=== PATIENT | female | born 1995 | race Caucasian/White ===

== ENCOUNTER 2023-08-15 01:58 | Inpatient (IN) | payer OTHER ==
[~2023-08-15] VITALS: Ht 167.6 cm; Wt 97.5 kg
[~2023-08-15 01:58] MED LIST: AMOXICILLIN500 MG PO; CEPHALEXIN500 MG PO; IBUPROFEN600 MG PO; PSEUDOEPHEDRINE30 MG PO; ZOFRAN ODT4 MG PO
[2023-08-15 03:15] LABS: HEMATOCRIT 30.5 % (35.0-50.0); HEMOGLOBIN 10.5 g/dL (12.0-18.0); MCH 30.4 (27-36); MCHC 34.4 g/dl (30-36); MCV 88.3 fl (81-99); RBC 3.46 M/ul (4.3-5.7); RDW 13.3 (10.5-15.0)
[2023-08-15 03:47] LABS: AMPHETAMINES, URINE NEGATIVE (NEGATIVE); BARBITURATES, URINE NEGATIVE (NEGATIVE); BENZODIAZEPINE, URINE NEGATIVE (NEGATIVE); BUPRENORPHINE, URINE NEGATIVE (NEGATIVE); CANNABINOID, URINE NEGATIVE (NEGATIVE); COCAINE, URINE NEGATIVE (NEGATIVE); ECSTASY, URINE NEGATIVE (NEGATIVE); FENTANYL, URINE NEGATIVE (NEGATIVE); METHADONE, URINE NEGATIVE (NEGATIVE); OPIATES, URINE NEGATIVE (NEGATIVE); OXYCODONE, URINE NEGATIVE (NEGATIVE); PHENCYCLIDINE, URINE NEGATIVE (NEGATIVE)
[2023-08-15 04:19] LABS: ABO O; ANTIBODY SCREEN POSITIVE; RH NEGATIVE
--- NOTE | 2023-08-15 09:12 | PR ---
[facility] [address] [place], [place] [address] Signed Progress Notes IP Datetime Report Generated by CPMonse: 08/15/2023 09:12 PROGRESS NOTES: [id number] Impression: Normal Progression of Labor; Reassuring Heart Rate Procedures: Artificial ROM; Sterile Vag Exam Plan: Continue Present Management; Anticipate Vaginal Delivery Informed Consent Obtain: Vaginal Delivery VITAL SIGNS: [id number] Vital Signs: Reviewed; Within Normal Limits EXAM: [id number] Dilatation: 7.0 Effacement: 80 Station: -2 Contractions: q 2-3 min MEMBRANES: [id number] Comments: Pt seen and examined. Doing well. Comfortable w/ epidural. Discuss progress of labor and anticipated course of labor and delivery. Reviewed reassuring FHT, adequate pelvis, and anticipated weight. All questions answered. Pt desires AROM which was easily performed for moderate amount of clear fluid after ensuring vertex well applied. Anticipate FETUS A: [id number] FHR Baseline: 125 Variability: Moderate 6-25bpm Accelerations: 15X15 Decelerations: None FHR Category: Category I Presentation: Vertex FETUS B: [id number] Signing Physician: Sesar De La Vega DO Copies: ~ *Electronically Signed* 08/15/23911 SESAR DE LA VEGA (CEDRIC) DO PATIENT NAME: JEANNETTE BARRON PROGRESS NOTE DATE OF : [birth year] PHYSICIAN: SESAR DE LA VEGA) DO RPT #: [id number] REPORT IS CONFIDENTIAL AND NOT TO BE RELEASED WITHOUT AUTHORIZATION
--- NOTE | 2023-08-15 11:39 | PR ---
[facility] [address] [facility] [place], [place] [address] Signed Progress Notes IP Datetime Report Generated by CPN: 08/15/2023 11:39 PROGRESS NOTES: [id number] Impression: Normal Progression of Labor; Reassuring Heart Rate Procedures: Sterile Vag Exam Plan: Continue Present Management Informed Consent Obtain: Vaginal Delivery VITAL SIGNS: [id number] Vital Signs: Reviewed; Within Normal Limits EXAM: [id number] Dilatation: 8.0 Effacement: 90 Station: -2 Contractions: q 2 min MEMBRANES: [id number] Comments: Pt seen and examined. Doing well. Comfortable w/ epidural. Discussed anticiapted course of labor/delivery. All questions answered. FETUS A: [id number] FHR Baseline: 125 Variability: Moderate 6-25bpm Accelerations: 15X15 Decelerations: None FHR Category: Category I Presentation: Vertex FETUS B: [id number] Signing Physician: Sesar De La Vega DO Copies: ~ *Electronically Signed* 08/15/23 1139 SESAR DE LA VEGA (CEDRIC) DO PATIENT NAME: JEANNETTE BARRON PROGRESS NOTE DATE OF : [birth year] PHYSICIAN: SESAR DE LA VEGA (CEDRIC) DO RPT #: [id number] REPORT IS CONFIDENTIAL AND NOT TO BE RELEASED WITHOUT AUTHORIZATION
[2023-08-15 13:43] VITALS: BP 121/75
--- NOTE | 2023-08-15 13:58 | PR ---
[facility] [address] [facility] [place], [place] [address] Signed Progress Notes IP Datetime Report Generated by CPMonse: 08/15/2023 13:58 PROGRESS NOTES: [id number] Impression: Normal Progression of Labor; Reassuring Heart Rate Procedures: Sterile Vag Exam Plan: Continue Present Management; Anticipate Vaginal Delivery Informed Consent Obtain: Vaginal Delivery VITAL SIGNS: [id number] Vital Signs: Reviewed; Within Normal Limits EXAM: [id number] Dilatation: 10.0 Effacement: 90 Station: -2 Contractions: q 2 min MEMBRANES: [id number] Comments: Pt seen and examined. Doing very well. FHT reassuing after episode of hypotension that resolved w/ ephedrine. Now complete and +1 station. Will allow to labor down and anticipate soon. FETUS A: [id number] FHR Baseline: 125 Variability: Moderate 6-25bpm Accelerations: 15X15 Decelerations: None FHR Category: Category I Presentation: Vertex FETUS B: [id number] Signing Physician: Sesar De La Vega DO Copies: ~ *Electronically Signed* 08/15/23 1872 SESAR DE LA VEGA (CEDRIC) DO PATIENT NAME: JEANNETTE BARRON PROGRESS NOTE DATE OF : [birth year] PHYSICIAN: SESAR DE LA VEGA (CEDRIC) DO RPT #: [id number] REPORT IS CONFIDENTIAL AND NOT TO BE RELEASED WITHOUT AUTHORIZATION
[2023-08-16 05:17] LABS: HEMATOCRIT 25.8 % (35.0-50.0); HEMOGLOBIN 8.8 g/dL (12.0-18.0); MCH 30.3 (27-36); MCHC 34.2 g/dl (30-36); MCV 88.5 fl (81-99); RBC 2.92 M/ul (4.3-5.7); RDW 13.6 (10.5-15.0)
[2023-08-16 06:18] LABS: ABO O; ANTIBODY SCREEN POSITIVE; RH NEGATIVE
[2023-08-16 06:20] LABS: FETAL HEMOGLOBIN SCREEN NEGATIVE; RHIG VIAL 1 RG22KO1-U
[2023-08-16 06:21] LABS: RHIG DOSE 1; RHIG STATUS CANDIDATE
--- NOTE | 2023-08-16 07:24 | PR ---
[facility] [address] [facility] [place], [place] [address] Signed PP Progress Notes Datetime Report Generated by CPN: 08/16/2023 07:24 SUBJECTIVE: [id number] Pain: Within Normal Limits Nausea/Vomiting: Denies Bowel Movement: No Vital Signs: [id number] Vital Signs: Reviewed; Within Normal Limits Cardiovascular: Normal Respiratory: Normal Abdomen/Uterus: Normal Lochia: Normal Vulva/Perineum: Not Done Breasts: Not Done CVA Tenderness: Normal Extremities: Normal Incision: Not Applicable Progress: Normal Exam Comments: Fundus firm U-2 nontender IMPRESSION/PLAN/PROCEDURES: [id number] Impression: Normal Progression Plan: Continue Present Management Progress Notes: Pt seen and examined. Doing well. Ambulating, voiding, and tolerating full diet. Pain and lochia minimal. well. No fevers/chills or other concerns. Anticipate d/c home tomorrow. Signing Physician: Sesar De La Vega DO Copies: ~ *Electronically Signed* 08/16/23 0724 SESAR DE LA VEGA (CEDRIC) DO PATIENT NAME: JEANNETTE BARRON LAILA PROGRESS NOTE DATE OF : [birth year] PHYSICIAN: SESAR DE LA VEGA) DO RPT #: [id number] REPORT IS CONFIDENTIAL AND NOT TO BE RELEASED WITHOUT AUTHORIZATION
--- NOTE | 2023-08-17 07:22 | PR ---
[facility] [address] [place], [place] [address] Signed PP Progress Notes Datetime Report Generated by DELMY: 08/17/2023 07:22 SUBJECTIVE: [id number] Pain: Within Normal Limits Nausea/Vomiting: Denies Flatus: Yes Bowel Movement: No Vital Signs: [id number] Vital Signs: Reviewed; Within Normal Limits Cardiovascular: Normal Respiratory: Normal Abdomen/Uterus: Normal Lochia: Normal Vulva/Perineum: Not Done Breasts: Not Done CVA Tenderness: Normal Extremities: Normal Incision: Not Applicable Progress: Normal Exam Comments: Fundus firm U-2 nontender IMPRESSION/PLAN/PROCEDURES: [id number] Impression: Normal Progression Other Impression: Acute blood loss anemia; asymptomatic Plan: Discharge Procedures: None Progress Notes: Pt seen and examined. Doing well. Ambulating, voiding, and tolerating full diet. Pain and lochia minimal. well. No fevers/chills. No lightheadedness / dizziness. No concerns and desires d/c home today. Reviewed d/c instructions and medications in detail. Reviewed pp contraception options; undecided. All questions answered. F/U 2 wks. Signing Physician: Sesar De La Vega DO Copies: ~ *Electronically Signed* 08/17/23 0722 SESAR DE LA VEGA (CEDRIC) DO PATIENT NAME: JEANNETTE BARRON PROGRESS NOTE DATE OF : 96 PHYSICIAN: SESAR DE LA VEGA (JD) DO RPT #: [id number] REPORT IS CONFIDENTIAL AND NOT TO BE RELEASED WITHOUT AUTHORIZATION
[2023-08-20 22:18] LABS: ANTIBODY IDENTIFICATION ANTI-D
[2023-08-20 22:18] LABS: ANTIBODY IDENTIFICATION ANTI-D
== END 2023-08-17 14:15 | disposition home or self-care (01) | DRG 806 ==
LOC: FBCO 01:58 → FBC 02:31
PROVIDERS: Obstetrics & Gynecology; ADMIT Obstetrics & Gynecology; ATTEND Obstetrics & Gynecology
PROC: 10E0XZZ Delivery of Products of Conception, External Approach (ICD-10-PCS; principal; 2023-08-15)
PROC: 0KQM0ZZ Repair Perineum Muscle, Open Approach (ICD-10-PCS; 2023-08-15)
PROC: 3E0R3BZ Introduction of Anesthetic Agent into Spinal Canal, Percutaneous Approach (ICD-10-PCS; 2023-08-15)
PROC: 00HU33Z Insertion of Infusion Device into Spinal Canal, Percutaneous Approach (ICD-10-PCS; 2023-08-15)
PROC: 10907ZC Drainage of Amniotic Fluid, Therapeutic from Products of Conception, Via Natural or Artificial Opening (ICD-10-PCS; 2023-08-15)
DX: O76 Abnormality in fetal heart rate and rhythm complicating labor and delivery (principal); D62 Acute posthemorrhagic anemia; Z37.0 Single live birth; O26.53 Maternal hypotension syndrome, third trimester; Z3A.38 38 weeks gestation of pregnancy; O90.81 Anemia of the puerperium; O70.1 Second degree perineal laceration during delivery
CPT/HCPCS: 36415; 80307; 83030; 85027; 86850; 86870; 86900; 86901; A9270; J2405; J2790; J2795; J3010; J7121

== ENCOUNTER 2025-05-11 12:59 | Day surgery (SDC) | payer OTHER ==
[~2025-05-11] VITALS: Ht 182.9 cm; Wt 90.9 kg
[~2025-05-11 12:59] MED LIST changes: +IBLOOD GLUCOSE TEST STRIP 1 EA TEST VI PRN; +LACTATED RINGER'S 1,000 ML IV SCH; +LIDOCAINE HCL 1% 5 ML SDV INJ ONE; +LIDOCAINE HCL 4% 50 ML BTL TOP SCH; +MIDAZOLAM HCL 5 MG/5 ML VIAL IV PRN; +fentaNYL citrate 100 MCG/2 ML VIAL IV PRN
[2025-05-11 13:22] VITALS: BP 118/67
[2025-05-11] MEDS ORDERED: MIDAZOLAM HCL 5 MG/5 ML VIAL ONE (14:07)
[2025-05-11] MEDS ORDERED: fentaNYL citrate 100 MCG/2 ML VIAL ONE (14:08)
[2025-05-11] MEDS ORDERED: MIDAZOLAM HCL 2 MG/2 ML VIAL ONE ×2 (14:26→14:33)
--- NOTE | 2025-05-11 14:58 | NUR ---
05/11/25 1450 Greta Alberto 1452: PT ARRIVES TO PACU AWAKE, SLIGHTLY DROWSY. REPORT RECEVIED FROM DIRECTOR OF SOCIAL SERVICES'S.
[2025-05-11 15:28] VITALS: BP 103/58
--- NOTE | 2025-05-12 07:59 | OR ---
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 2. Family history of Galdamez syndrome; sister, mother, and maternal grandmother. POSTOPERATIVE DIAGNOSES: 1. Normal-appearing upper endoscopy. 2. Small polyps of colon x2 (rectosigmoid and rectum). PROCEDURES: 1. Esophagogastroduodenoscopy with biopsy. 2. Total colonoscopy to cecum with cold morcellation polypectomy x2. ANESTHESIA: Intravenous sedation with fentanyl 150 mcg total and Versed 14 mg total. INDICATION: This 29-year-old white woman is a patient of CHILANGO Cortez. Her sister who has underlying severe Crohn disease was identified as having Galdamez syndrome. Testing was performed in the patient's mother in addition to her sister as well as the maternal grandmother, all of which were positive for Galdamez syndrome. The patient has no symptoms of bleeding, diarrhea, or constipation and no upper gastrointestinal symptoms. Based on her serologic findings, Galdamez syndrome, upper endoscopy and colonoscopy as initial evaluation has been recommended despite her young age. The risks of upper endoscopy and colonoscopy were reviewed with her, which include, but are not limited to bleeding, infection, and perforation. She understands and wishes to proceed. FINDINGS: Upper endoscopy was essentially normal. CLOtest biopsies were equivocal at 30 minutes. As regards to colon, it was well prepped. There were two small polyps, both of them likely adenomas, one at the rectosigmoid, the other in the rectum, both were excised. There were no other findings of note. DESCRIPTION OF PROCEDURE: The patient was brought to the endoscopy suite and placed in lateral decubitus position after undergoing topical lidocaine hypopharyngeal anesthesia. She was given intravenous Electronically Signed By: ALIZA BETANCUR MD 05/12/25 0759 PATIENT NAME: JEANNETTE BARRON OPERATIVE REPORT DATE OF : [birth year] REPORT #: [id number] PHYSICIAN: ALIZA BETANCUR MD PCP: SMILEY YOUNGBLOOD PA-C REPORT IS CONFIDENTIAL AND NOT TO BE RELEASED WITHOUT AUTHORIZATION [facility] [address] [place], [place] [address] Signed sedation with full cardiopulmonary monitoring. A bite block was placed. An Olympus video upper endoscope passed in the hypopharynx. The vocal cords were normal. Examination of the esophagus, stomach, and duodenum was thoroughly undertaken showing no sign of obvious abnormality. Biopsies were taken of the duodenum to assess for celiac disease and of the antrum and proximal stomach for both ONELIA and pathologic testing. Retroflexed view did confirm a normal flap valve. Biopsies were then taken of the distal esophagus. Further withdrawal showed no findings of note. Plans were then made for colonoscopy. Additional sedation was given. Digital rectal examination performed, which was normal. An Olympus video colonoscope was passed in the rectum and manipulated throughout the colon, ultimately intubating the cecum itself. The ileocecal valve and appendiceal orifice were normal. The scope was withdrawn from that point. Examination showed no sign of abnormality into the rectosigmoid, where a small adenomatous-appearing polyp was noted. It was about 3 mm at most in size. It was excised with cold morcellation technique. Another polyp slightly smaller was noted in the rectum, also excised. Retroflexed view showed no other abnormality. The scope was removed and the patient was taken to the recovery room in good condition. CONCLUDING DIAGNOSES: 1. Galdamez syndrome, two small polyps, rectosigmoid and rectum, both excised. 2. No evidence of upper gastrointestinal polyp or abnormality. PLAN: Would recommend repeat upper endoscopy in 5 years based on clinical guidelines for patients proven with Galdamez syndrome and in 1-2 years (prefer 1) of the colon. I have explained this to the patient and she understands. The patient will return to the ongoing care of CHILANGO Cortez. MD GONSALO Camilo/WILIANL /[id number] cc: CHILANGO Cortez Electronically Signed By: ALIZA BETANCUR MD 05/12/25 0759 PATIENT NAME: JEANNETTE BARRON OPERATIVE REPORT DATE OF : [birth year] REPORT #: [id number] PHYSICIAN: ALIZA BETANCUR MD PCP: SMILEY YOUNGBLOOD PA-C REPORT IS CONFIDENTIAL AND NOT TO BE RELEASED WITHOUT AUTHORIZATION [facility] [address] [facility] [place] [address] Signed Copies: ~ Electronically Signed By: ALIZA BETANCUR MD 05/12/25 0759 PATIENT NAME: JEANNETTE BARRON OPERATIVE REPORT DATE OF : [birth year] REPORT #: [id number] PHYSICIAN: ALIZA BETANCUR MD PCP: SMILEY YOUNGBLOOD PA-C REPORT IS CONFIDENTIAL AND NOT TO BE RELEASED WITHOUT AUTHORIZATION
--- NOTE | 2025-05-14 17:19 | PATH ---
[facility] [address] [place], [place] [address] Signed SPECIMEN(S): A DUODENAL BIOPSY SPECIMEN(S): B ANTRUM BIOPSY SPECIMEN(S): C LOWER ESOPHAGEAL BIOPSY SPECIMEN(S): D RECTOSIGMOID COLON POLYP SPECIMEN(S): E RECTAL POLYP SPECIMEN SOURCE: A. DUODENAL BIOPSY B. ANTRUM BIOPSY C. LOWER ESOPHAGEAL BIOPSY D. RECTOSIGMOID COLON POLYP E. RECTAL POLYP CLINICAL HISTORY: History of Galdamez syndrome, polyps FINAL PATHOLOGIC DIAGNOSIS: A. Duodenal biopsy: - Benign duodenal mucosa, negative for specific diagnostic abnormality. B. Antrum biopsy: - Diffuse superficial chronic gastritis. - A Helicobacter pylori immunostain is positive for organisms. C. Lower esophageal biopsy: - Esophageal and gastric mucosa with reactive features and mild chronic inflammation. - Negative for specialized intestinal metaplasia or dysplasia. D. Rectosigmoid colon polyp: - Hyperplastic polyp (one fragment). E. Rectal polyp: - Polypoid colonic mucosa, negative for dysplasia or pathologic inflammation. COMMENT: A Helicobacter pylori immunostain is performed with appropriate positive and negative controls on block B1 and is positive for organisms. [facility] MICROSCOPIC EXAMINATION: Histologic sections of all submitted blocks are examined by light microscopy. These findings, together with the gross examination, support the pathologic diagnosis. PATIENT NAME: JEANNETTE BARRON PATHOLOGY DATE OF : [birth year] REPORT #: [id number] PHYSICIAN: TREVA PATHOLOGY PCP: SMILEY YOUNGBLOOD PA-C REPORT IS CONFIDENTIAL AND NOT TO BE RELEASED WITHOUT AUTHORIZATION [facility] [address] [place], [place] [address] Signed GROSS DESCRIPTION: A. The specimen, labeled and designated "Barron, duodenal biopsy," is received in formalin and consists of two bernard soft tissue fragments, ranging from 0.5-0.8 cm. Entirely submitted in (A1). B. The specimen, labeled and designated "Barron, antrum biopsy," is received in formalin and consists of three bernard soft tissue fragments, ranging from 0.1-0.5 cm. Entirely submitted in (B1). C. The specimen, labeled and designated "Barron, lower esophageal biopsy," is received in formalin and consists of two bernard soft tissue fragments, ranging from 0.4-0.6 cm. Entirely submitted in (C1). D. The specimen, labeled and designated "Barron, rectosigmoid colon polyp," is received in formalin and consists of two bernard soft tissue fragments, ranging from 0.2-0.3 cm. Entirely submitted in (D1). E. The specimen, labeled and designated "Barron, rectal polyp," is received in formalin and consists of one bernard soft tissue fragment, 0.2 cm. Entirely submitted in (E1). VB (under the direct supervision of a pathologist) The Gross Description was prepared using a voice recognition system. The report was reviewed for accuracy; however, sound-alike word errors, addition and/or deletions may occur. If there is any question about this report, please contact Client Services. ADDITIONAL NOTES: Immunohistochemical and/or in situ hybridization studies if performed in this case included appropriate positive controls that reacted as expected. This test was developed and its performance characteristics determined by [facility]. It has not been cleared or approved by the U.S. Food and Drug Administration. The FDA has determined that such clearance or approval is not necessary. This test is used for clinical purposes. It should not be regarded as investigational or for research. [facility] is certified under the Clinical Laboratory Improvement Amendments of 1988 (CLIA) as qualified to perform high complexity clinical laboratory testing. PERFORMING LABORATORY: Technical component was performed by [facility], [facility] [address] (CLIA# [id number]). Professional interpretation was performed by [facility] [place] [facility] - PATIENT NAME: JEANNETTE BARRON PATHOLOGY DATE OF : [birth year] REPORT #: [id number] PHYSICIAN: JOSEOctoshape SUSY PCP: SMILEY YOUNGBLOOD PA-C REPORT IS CONFIDENTIAL AND NOT TO BE RELEASED WITHOUT AUTHORIZATION [facility] [address] [place], [place] [address] Signed [address] [place] [place] [address] (CLIA#: [id number]). Diagnostician: Siddharth Cordero MD Pathologist Electronically Signed 05/14/2025 Copies: ~ PATIENT NAME: JEANNETTE BARRON PATHOLOGY DATE OF : [birth year] REPORT #: [id number] PHYSICIAN: TREVA JAIN PCP: SMILEY YOUNGBLOOD PA-C REPORT IS CONFIDENTIAL AND NOT TO BE RELEASED WITHOUT AUTHORIZATION
== END 2025-05-11 15:38 | disposition home or self-care (01) ==
LOC: DS 12:59 → DSVR 13:00 → DS 14:00
PROVIDERS: ATTEND Surgery
PROC: 0DB38ZX Excision of Lower Esophagus, Via Natural or Artificial Opening Endoscopic, Diagnostic (ICD-10-PCS; 2025-05-11)
PROC: 0DBP8ZX Excision of Rectum, Via Natural or Artificial Opening Endoscopic, Diagnostic (ICD-10-PCS; 2025-05-11)
PROC: 0DBN8ZX Excision of Sigmoid Colon, Via Natural or Artificial Opening Endoscopic, Diagnostic (ICD-10-PCS; 2025-05-11)
PROC: 0DB98ZX Excision of Duodenum, Via Natural or Artificial Opening Endoscopic, Diagnostic (ICD-10-PCS; principal; 2025-05-11 14:00)
PROC: 0DB68ZX Excision of Stomach, Via Natural or Artificial Opening Endoscopic, Diagnostic (ICD-10-PCS; 2025-05-11 14:00)
DX: Z12.11 Encounter for screening for malignant neoplasm of colon (principal); K63.5 Polyp of colon; K62.1 Rectal polyp; K29.30 Chronic superficial gastritis without bleeding; B96.81 Helicobacter pylori [H. pylori] as the cause of diseases classified elsewhere; K20.90 Esophagitis, unspecified without bleeding; Z83.79 Family history of other diseases of the digestive system; Z15.09 Genetic susceptibility to other malignant neoplasm
CPT/HCPCS: 84703; 99153; G0500; J2250; J3010; J7121